=== PATIENT | female | born 1985 | race Caucasian/White ===

== ENCOUNTER 2016-08-28 20:17 | Emergency (ER) | payer MEDICAID, OTHER ==
[~2016-08-28] VITALS: Ht 134.6 cm; Wt 57.0 kg
[~2016-08-28 20:17] MED LIST: CETI10CA PO; IBUP-1542 PO
[2016-08-28 21:48] VITALS: Ht 134.6 cm; Wt 57.0 kg
--- NOTE | 2016-08-28 23:22 | ERD ---
ER Documentation Chief Complaint Date/Time DATE: 08/28/16 TIME: 23:17 Chief Complaint martell/fever/back pain x 3 weeks. HPI 31-year-old female presents to emergency department for complaints of headache, back pain, on and off fever for 3 weeks. Patient discussed the pain and the headache as throbbing pain, 4/10 scale, not better or worse with anything. Patient did not have any head injury. Patient did not take any medication for pain. Patient complaining of lower back pain for 3 weeks, sharp pain, 6/10, worse upon movement. Patient states that she has been having on and off fever but did not check temperature home. Patient states that she felt warm. Patient is approximately 13 weeks . 4 para 3 0. Patient denies hematuria or dysuria. Patient denies any nausea or vomiting. ROS All systems reviewed and are negative except as per history of present illness. Medications Home Meds Active Scripts Cetirizine Hcl* (Zyrtec*) 10 Mg Capsule, 10 MG PO DAILY, #20 TAB.CHEW Prov:ABDULLAHI CHEEK MD 09/18/15 Ibuprofen* (Motrin*) 600 Mg Tab, 600 MG PO Q6, #20 TAB Prov:ABDULLAHI CHEEK MD 09/18/15 Allergies Allergies: Coded Allergies: No Known Drug Allergy (Verified Allergy, 09/25/13) PMhx/Soc History of Surgery: Yes ( section) Anesthesia Reaction: No Hx Neurological Disorder: No Hx Respiratory Disorders: No Hx Cardiac Disorders: No Hx Psychiatric Problems: No Hx Miscellaneous Medical Probl: No Hx Alcohol Use: No Hx Substance Use: No Hx Tobacco Use: No FmHx Family History: No coronary disease, No diabetes, No other Physical Exam Vitals Vital Signs Date Time Temp Pulse Resp B/P Pulse Ox O2 Delivery O2 Flow Rate FiO2 08/28/16 21:48 98.8 81 18 118/64 99 Physical Exam GENERAL: The patient is well developed and appropriate for usual state of health, in no apparent distress. CHEST: Clear to auscultation bilaterally. There are no rales, wheezes or rhonchi. HEART: Regular rate and rhythm. No murmurs, clicks, rubs or gallops. No S3 or S4. ABDOMEN: Soft, nontender and nondistended. Good bowel sounds. No rebound or guarding. No gross peritonitis. No gross organomegaly or masses. No Joyce sign or McBurney point tenderness. BACK: No midline or flank tenderness. EXTREMITIES: Equal pulses bilaterally. There is no peripheral clubbing, cyanosis or edema. No focal swelling or erythema. Full range of motion. Grossly neurovascularly intact. NEURO: Alert and oriented. Cranial nerves 2-12 intact. Motor strength in all 4 extremities with 5/5 strength. Sensation grossly intact. Normal speech and gait. SKIN: There is no apparent rash or petechia. The skin is warm and dry. HEMATOLOGIC AND LYMPHATIC: There is no evidence of excessive bruising or lymphedema. No gross cervical, axillary, or inguinal lymphadenopathy. Result Diagram: 08/28/16 2330 Results 24 hrs Laboratory Tests Test 08/28/16 23:30 08/28/16 23:41 Basophils # 0.010^3/ul Basophils % 0.3% Beta HCG, Quantitative 32588.0mIU/ml Eosinophils # 0.010^3/ul Eosinophils % 0.4% Hematocrit 36.3% Hemoglobin 12.5g/dl Lymphocytes # 3.010^3/ul Lymphocytes % 27.4% Mean Corpuscular Hemoglobin 30.5pg Mean Corpuscular Hemoglobin Concent 34.4g/dl Mean Corpuscular Volume 88.6fl Mean Platelet Volume 10.2fl Monocytes # 0.710^3/ul Monocytes % 6.2% Neutrophils # 7.210^3/ul Neutrophils % 65.7% Nucleated Red Blood Cells # 0.010^3/ul Nucleated Red Blood Cells % 0.0/100WBC Platelet Count 19402^3/UL Red Blood Count 4.1010^6/ul Red Cell Distribution Width 13.1% White Blood Count 10.910^3/ul Urine Bacteria FEW Urine Bilirubin NEGATIVE Urine Clarity CLEAR Urine Color LT. YELLOW Urine Glucose NEGATIVE% Urine Hemoglobin 1+ Urine Ketones 40 Urine Leukocyte Esterase NEGATIVE Urine Microscopic RBC 0-2/HPF Urine Microscopic WBC 0-2/HPF Urine Nitrite NEGATIVE Urine Specific [place] 1.015 Urine Squamous Epithelial Cells FEW Urine Total Protein NEGATIVE Urine Transitional Epithelial Cells Urine Urobilinogen 0.2 E.U./dL Urine pH 6.0 PROCEDURE: Obstetrical ultrasound greater than 14 weeks CLINICAL INDICATION: Back pain TECHNIQUE: Real time sonographic imaging of the gravid uterus is performed transabdominally and multiple static walls scale and Doppler images are submitted for review as are measurements. The images are reviewed on the PACS. COMPARISON: No relevant exams are available FINDINGS: There is a single living intrauterine gestation in variable presentation. The heart beat is estimated at 146 bpm. The measurements are as follows: BPD: 3.36 cm HC: 12.32 cm AC: 10.23 cm FL: 2.13 cm Estimated gestational age is 16 weeks 2 days. The estimated date of delivery is 02/10/2017. The estimated weight is 151 grams. Placenta is fundal and grade 0. There is no evidence of placenta previa or abruption. anatomic survey is performed and shows no abnormality, the three-vessel cord and cord insertion are unremarkable. The maximum vertical pocket of amniotic fluid is normal estimated at 3.3 cm, qualitatively the amount of amniotic fluid appears normal. RPTAT:HJJR IMPRESSION: 1. Single viable intrauterine gestation estimated at 16 weeks 2 days with the estimated date of delivery 02/10/2017. 2. Fundal grade 0 placenta without placenta abruption or previa. Physician Laura Date Time Electronically viewed and signed by Physician Laura on 08/28/2016 23:42 JR/ CC: CHANCE NGUYEN PUBLIC RELATIONS REPRESENTATIVE Procedures/MDM Medical Decision Making: Patient's symptoms of back pain nonspecific at this time, possible musculoskeletal pain from the . Patient's headache is nonspecific, possibly tension headache, possible migraine. No tract infection, no symptoms of pyelonephritis. There is low suspicion for abdominal emergencies at this time. Patients abdominal exam is normal at this time. Patients ultrasound shows a viable . There is low suspicion for appendicitis, cholecystitis, abdominal aortic aneurysms or peritonitis at this time. There is low suspicion for sepsis. Patient appears well and is hemodynamically stable. She has subjective fever, but no leukocytosis, no bandemia, no fever here in the emergency department. Disposition: Home. Condition: Stable Prescription Tylenol Instructions: Patient is advised to take medications as prescribed. Patient is advised to rest, increase fluid intake and do brat diet for next 1-2 days and progress as tolerated. Patient is advised that if symptoms are worse, severe abdominal pain, uncontrolled vomiting, high fever, severe flank pain, worst signs and symptoms, to return to the emergency department immediately. Otherwise, patient can follow up with primary care doctor in 5-7 days. OB doctor within 1-2 days. Departure Diagnosis: Primary Impression: Back pain Back pain location: low back pain Chronicity: acute Back pain laterality: bilateral Sciatica presence: without sciatica Qualified Code: M54.5 - Acute bilateral low back pain without sciatica Additional Impressions: Headache Headache type: unspecified Headache chronicity pattern: acute headache Intractability: not intractable Qualified Code: R51 - Acute nonintractable headache, unspecified headache type Intrauterine Additional Instructions: Patient is advised to take medications as prescribed. Patient is advised to rest , increase fluid intake and do brat diet for next 1-2 days and progress as tolerated. Patient is advised that if symptoms are worse, severe abdominal pain , uncontrolled vomiting, high fever, severe flank pain, worst signs and symptoms , to return to the emergency department immediately. Otherwise, patient can follow up with primary care doctor in 5-7 days. OB doctor within 1-2 days. CHANCE NGUYEN NP Aug 28, 2016 23:21
--- NOTE | 2016-08-28 23:42 | RADRPT ---
PROCEDURE: Obstetrical ultrasound greater than 14 weeks CLINICAL INDICATION: Back pain TECHNIQUE: Real time sonographic imaging of the gravid uterus is performed transabdominally and mu ltiple static walls scale and Doppler images are submitted for review as are measurements. The image s are reviewed on the PACS. COMPARISON: No relevant exams are available FINDINGS: There is a single living intrauterine gestation in variable presentation. The heart beat is e stimated at 146 bpm. The measurements are as follows: BPD:3.36 cm HC:12.32 cm AC:10.23 cm FL:2.13 cm Estimated gestational age is 16 weeks 2 days. The estimated date of delivery is 02/10/2017. The estimated weight is 151 grams. Placenta is fundal and grade 0. There is no evidence of placenta previa or abruption. anatomic survey is performed and shows no abnormality, the three-vessel cord and cord insertio n are unremarkable. The maximum vertical pocket of amniotic fluid is normal estimated at 3.3 cm, qualitatively the amoun t of amniotic fluid appears normal. RPTAT:HJJR IMPRESSION: 1. Single viable intrauterine gestation estimated at 16 weeks 2 days with the estimated date of deli very 02/10/2017. 2. Fundal grade 0 placenta without placenta abruption or previa. Physician Laura Date Time Electronically viewed and signed by Physician Laura on 08/28/2016 23:42 JR/
[2016-08-29 00:10] LABS: ADD UMIC YES; URINE BILIRUBIN (Dip) NEGATIVE (NEGATIVE); URINE BLOOD (Dip) 1+ (NEGATIVE); URINE COLOR LT. YELLOW (YELLOW); URINE GLUCOSE (Dip) NEGATIVE (NEGATIVE); URINE KETONES (Dip) 40 (NEGATIVE); URINE LEUKOCYTE ESTERASE (Dip) NEGATIVE (NEGATIVE); URINE NITRITE (Dip) NEGATIVE (NEGATIVE); URINE TOTAL PROTEIN (Dip) NEGATIVE (NEGATIVE); URINE UROBILINOGEN (Dip) 0.2 E.U./dL (0.1-1.0)
[2016-08-29 00:26] LABS: BASOPHILS % 0.3 % (0.0-2.0); EOSINOPHILS % 0.4 % (0.0-7.0); HEMATOCRIT 36.3 % (37.0-47.0); HEMOGLOBIN 12.5 g/dl (12.0-16.0); LYMPHOCYTES % 27.4 % (15.0-51.0); MEAN CORPUSCULAR HEMOGLOBIN 30.5 pg (29.0-33.0); MEAN CORPUSCULAR HGB CONC 34.4 g/dl (32.0-37.0); MEAN CORPUSCULAR VOLUME 88.6 fl (82.0-101.0); MEAN PLATELET VOLUME 10.2 fl (7.4-10.4); MONOCYTE # 0.7 10^3/ul (0.3-0.9); MONOCYTES % 6.2 % (0.0-11.0); NEUTROPHIL # 7.2 10^3/ul (1.6-7.5); NEUTROPHILS % 65.7 % (39.0-77.0); PLATELET COUNT 188 10^3/UL (140-440); RED CELL DISTRIBUTION WIDTH 13.1 % (11.5-14.5); UNCORRECTED WBC 10.9 10^3/ul (4.8-10.8); WHITE BLOOD COUNT 10.9 10^3/ul (4.8-10.8)
[2016-08-29 00:38] LABS: CONDITION 1
[2016-08-29 01:14] LABS: URINE RBCS 0-2 /HPF (0)
[2016-08-29 01:15] LABS: BACTERIA,URINE FEW; SQUAMOUS EPITHELIAL CELL,UR FEW
[2016-08-29] MEDS ORDERED: ACET500C5 PO (01:54)
[2016-08-29 02:02] VITALS: BP 108/64; PULSE 78; RESP 20; TEMP 98.6
== END 2016-08-29 02:03 | disposition home or self-care (01) ==
LOC: FTE 20:17
DX: O99.89 Other specified diseases and conditions complicating pregnancy, childbirth and the puerperium (principal); M54.5 Low back pain; R51 Headache; Z3A.16 16 weeks gestation of pregnancy
CPT/HCPCS: 36415; 76805; 81001; 81003; 84702; 85025; 86900; 86901; Z7502

== ENCOUNTER 2016-12-10 20:30 | Outpatient (CLI) | payer MEDICAID ==
[~2016-12-10] VITALS: Ht 134.6 cm; Wt 57.7 kg
[~2016-12-10 20:30] MED LIST changes: +ACET500C5 PO
[2016-12-10] MEDS ORDERED: NIFEdipine (XL) 60 MG TAB PO ONE (21:30)
--- NOTE | 2016-12-10 21:36 | HP ---
Date/Time of Note Date/Time of Note DATE: 12/10/16 TIME: 21:31 OB - History Hx of Present Free Text/Dictation SAB1 with IUP at 31 weeks and h/o c/s x 3. she c/o constant pelvic pressure , but not intermittent contractions for the past 5 days. she denies vaginal bleeding or LOF per vagina. she reports good FM. she also c/o back pain over her right SI joint. she reports her back pain is worse with activities. Care: Good Care Ultrasounds: Normal mid trimester US Obstetrical Complications: None Medical Complications: None Past Family/Social History * significant for h/o c/s x 3 OB Admission Exam Vital Signs Vital Signs AF, VSS Back: tender over Right SI joint. Physical Exam HEENT: WNL Heart: Rhythm Normal Lungs: Clear, Equal Abdomen: WNL Extremities: Normal Reflexes: Normal Cervical Dilatation: None Effacement: 0% Station: -3 Membranes: Intact OB Assessment/Plan Other Assessment: SAB1 with IUP at 31 weeks and h/o c/s x 3. she c/o constant pelvic pressure , but not intermittent contractions for the past 5 days. she denies vaginal bleeding or LOF per vagina. she reports good FM. she also c/o back pain over her right SI joint. she reports her back pain is worse with activities.not in labor Other plan: may be discharged home with PTL precautions KAM DEUTSCH MD December 10, 2016 21:36
[2016-12-10 21:49] VITALS: Ht 134.6 cm; Wt 57.7 kg
[2016-12-10 21:50] VITALS: BP 107/63; PULSE 86; RESP 18
[2016-12-10] MEDS ORDERED: PREN-93 PO (21:53)
[2016-12-10 22:33] LABS: ADD UMIC YES; URINE BILIRUBIN (Dip) NEGATIVE (NEGATIVE); URINE BLOOD (Dip) TRACE (NEGATIVE); URINE COLOR LT. YELLOW (YELLOW); URINE GLUCOSE (Dip) NEGATIVE (NEGATIVE); URINE KETONES (Dip) 40 (NEGATIVE); URINE LEUKOCYTE ESTERASE (Dip) NEGATIVE (NEGATIVE); URINE NITRITE (Dip) NEGATIVE (NEGATIVE); URINE TOTAL PROTEIN (Dip) NEGATIVE (NEGATIVE); URINE UROBILINOGEN (Dip) 0.2 E.U./dL (0.1-1.0)
[2016-12-10 22:39] LABS: BACTERIA,URINE FEW
[2016-12-10 22:40] LABS: URINE RBCS 0-2 /HPF (0)
--- NOTE | 2016-12-11 01:03 | TRIAGE ---
OB Triage Datetime Report Generated by CPN: 12/11/2016 01:03 Datetime: 12/10/2016 22:00 Labor Evaluation Frequency: IRREGULAR Monitor Mode: External Duration (sec)2399: 60 Quality: Mild Pattern: Normal: <= 5 Contractions in 10 Minutes Resting Tone [place]: Relaxed Heart Rate FHR Baseline Rate: 145 Monitor Mode: External US FHR Baseline Changes: No Baseline Change Variability: Moderate 6-25 bpm Accelerations: 15X15 Decelerations: None; Variable Category: Category I Datetime: 12/10/2016 21:02 Vaginal Exam Dilatation (cms): 0.0 Effacement (%): 0 Station: -3 Exam By: RUPERTO Vaginal Bleeding: None Cervix, Consistency: Firm Cervix, Position: Posterior Datetime: 12/10/2016 21:00 Labor Evaluation Frequency: 1 Monitor Mode: External Duration (sec)2399: 50 Quality: Mild Pattern: Normal: <= 5 Contractions in 10 Minutes Resting Tone [place]: Relaxed Heart Rate FHR Baseline Rate: 140 Monitor Mode: External US FHR Baseline Changes: No Baseline Change Variability: Moderate 6-25 bpm Accelerations: 15X15 Decelerations: None Category: Category I Datetime: 12/10/2016 20:47 Time of Arrival: 12/10/2016 20:22 Arrived By: Wheelchair Arrived From: Home Chief Complaint: ABDOMINAL PAIN Movement: Present Contractions: Denies/Absent Rupture of Membranes: Denies Vaginal Bleeding: None Vaginal Discharge: Denies Recent Sexual Intercouse: Denies Abdominal Trauma: Not Applicable Time Provider Notified: 12/10/2016 20:47 Provider Notified: DR DEUTSCH (Annotations: Data stored by N on behalf of user) Initial Plan: CALL MD EFM Maternal Assessment Level of Consciousness: Fully Conscious DTR's/Clonus: DTRs 2+; No Clonus Headache: Denies Blurred Vision: No Respiratory Effort: Unlabored; Regular Rhythm; Equal Expansion Breath Sounds, Left: Clear and Equal Breath Sounds, Right: Clear and Equal Nausea/Vomiting: Denies RUQ Epigastric Pain: Denies Lower Extremities Edema: None Degree: None Upper Extremities Edema: None Degree: None Facial Edema: None Temperature Route: Oral Fall Risk Assessment History of Falling: (0) No Secondary Diagnosis: (0) No Ambulatory Aid: (0) Bedrest/Nurse Assist IV Therapy: (0) No Gait: (0) Normal/Bedrest/Immobile Mental Status: (0) Oriented to Own Ability Fall Score: 0 Fall Risk Score Definition: No Risk: No action required Monitor Mode: External Monitor Mode: External US Pain Assessment Pain Scale: 5 Pain Presence: Intermittent Pain Type: Cramping Pain Location: Abdomen; Back
== END 2016-12-10 22:30 | disposition home or self-care (01) ==
LOC: OBT 20:30 → L-D 20:33 → OBT 22:30
PROVIDERS: ATTEND Specialist
DX: O26.893 Other specified pregnancy related conditions, third trimester (principal); R10.2 Pelvic and perineal pain; Z3A.31 31 weeks gestation of pregnancy
CPT/HCPCS: 81001; 81003; 84112; 87086; Z7610; G0463

== ENCOUNTER 2017-01-03 16:39 | Inpatient (IN) | payer MEDICAID ==
[~2017-01-03] VITALS: Ht 134.6 cm; Wt 59.8 kg
[~2017-01-03 16:39] MED LIST changes: -ACET500C5 PO; -CETI10CA PO; -IBUP-1542 PO; +PREN-93 PO
[2017-01-03 16:54] LABS: URINE BLOOD (Dip) POC Trace-lysed (NEGATIVE)
[2017-01-03 17:05] VITALS: BP 104/66; PULSE 89; RESP 89; Ht 134.6 cm; Wt 59.8 kg
[2017-01-03] MEDS ORDERED: LACTATED RINGER'S 1,000 ML IV ONE (17:30)
[2017-01-03 18:19] LABS: ADD UMIC YES; UR BILIRUBIN (Dip) 1+ (NEGATIVE); UR BLOOD (Dip) TRACE (NEGATIVE); UR CLARITY SLIGHTLY CLOUDY (CLEAR); UR COLOR YELLOW (YELLOW); UR GLUCOSE (Dip) NEGATIVE (NEGATIVE); UR KETONES (Dip) TRACE (NEGATIVE); UR LEUKOCYTE ESTERASE (Dip) NEGATIVE (NEGATIVE); UR NITRITE (Dip) NEGATIVE (NEGATIVE); UR TOTAL PROTEIN (Dip) 1+ (NEGATIVE); UR UROBILINOGEN (Dip) 1.0 E.U./dL (0.1-1.0)
[2017-01-03] MEDS ORDERED: TERBUTALINE 1 ML ONE (18:19)
[2017-01-03 18:27] LABS: ICTOTEST NEGATIVE (NEGATIVE)
[2017-01-03 18:29] LABS: UR BACTERIA FEW; UR SQUAMOUS EPITHELIAL CELL MODERATE; UR URIC ACID CRYSTAL FEW; URINE RBCS 0-2 /HPF (0)
[2017-01-03] MEDS ORDERED: TERBUTALINE 1 MG/ML INJ SC ONE (18:30)
--- NOTE | 2017-01-03 18:41 | RADRPT ---
PROCEDURE: Obstetrical ultrasound CLINICAL INDICATION: labor TECHNIQUE: Multiple sonographic images of the pelvis were obtained. The images were reviewed on a PACS workstation. COMPARISON: Obstetrical ultrasound from 08/28/2016 FINDINGS: The cervix is not well visualized. There is a single viable intrauterine gestation. Cardiac activity is present with 139 beats per minute. There is a vertex presentation. The placenta is anterior. There is no evidence for an abruption or placenta previa. There is a subjectively normal amount of amniotic fluid. Measurements were made in order to determine age. The results are as follows (cm): BPD =8.23 HC =30.50 AC =30.25 FL =6.42 Estimated gestational age by ultrasound of approximately 33 weeks, 4 days. The estimated date of delivery by ultrasound is 02/17/2017. Estimated gestational age by LMP of approximately 33 weeks, 3 days. The estimated date of delivery by LMP is 02/18/2017. EFW = 2275 grams (52nd percentile) IMPRESSION: Single viable intrauterine gestation of approximately 33 weeks, 4 days . The estimated date of delivery is 02/17/2017 . Dating by ultrasound is within 1 day of dating by LMP. Cephalic presentation. Estimated weight is in the 52nd percentile. RPTAT: EE Physician Tanvir Date Time Electronically viewed and signed by Physician Tanvir on 01/03/2017 18:40 /
--- NOTE | 2017-01-03 19:50 | RADRPT ---
PROCEDURE: Limited obstetric ultrasound CLINICAL INDICATION: Pain , labor TECHNIQUE: Multiple transverse and longitudinal grayscale images of the pelvis were obtained kay sabdominally and transvaginally.. COMPARISON: same day FINDINGS: The cervix is closed with a length of 4.5 cm. RPTAT: AA IMPRESSION: Cervix length measures 4.5 cm. .Jd Leblanc MD, MD Date Time Electronically viewed and signed by .Jd Leblanc MD, on 01/03/2017 19:50 .S/
[2017-01-03] MEDS: NIFEdipine 10 MG CAP PO SCH ×3 (20:31→22:32)
[2017-01-04] MEDS ORDERED: BETAMET NA PHOS/AC(6 MG/ML) 5ML INJ IM SCH
[2017-01-04] MEDS ORDERED: AL HYDROX/MG HYDROX/SIMETH 30 ML CUP PO PRN
--- NOTE | 2017-01-04 00:17 | PN ---
Triage Information Date/Time Jan 03, 2017 at 23:05 Weeks of Gestation 34 weeks and 4 days : 5 Para: 3 Diabetes: none Hypertention: none Additional information 31 years old with IUP at 34 weeks and 4 days with history of section x 3 presented with complaint of regular painful uterine contractions. Denies any vaginal bleeding., decreased movement or LOF. Reports history of PTD at 7 mo in the past. Denies any urinary symptoms. Denies any complication during her course. OLESYA by 16 weeks consistent with 23 weeks: February 10, 2017 Started care at 20 weeks. Objective Vital Signs Date Time Temp Pulse Resp B/P Pulse Ox O2 Delivery O2 Flow Rate FiO2 01/03/17 17:05 98.6 89 89 104/66 99 Room Air Exam GA: A&O, Appears to be in moderate distress Abdomen: soft, non tender, Gravid. Fundal height consistent with GA NST; CAt 1 Regular contractions every 2-6 minutes noted on the monitor Vaginal exam: - UA: Negative Results/Medications Results 24 hrs Laboratory Tests Test 01/03/17 16:57 01/03/17 17:00 Bedside Urine pH (LAB) 6.0 Bedside Urine Protein (LAB) 2+ H Bedside Urine Glucose (UA) Negative Bedside Urine Ketones (LAB) Trace H Bedside Urine Blood Trace-lysed H Bedside Urine Nitrite (LAB) Negative Bedside Urine Leukocyte Esterase (L Negative Urine Color YELLOW Urine Clarity SLIGHTLY CLOUDY Urine pH 6.0 Urine Specific [place] >=1.030 H Urine Ketones TRACE H Urine Nitrite NEGATIVE Urine Bilirubin 1+ H Urine Ictotest NEGATIVE Urine Urobilinogen 1.0 E.U./dL Urine Leukocyte Esterase NEGATIVE Urine Microscopic RBC 0-2 Urine Microscopic WBC 0-2 Urine Squamous Epithelial Cells MODERATE Urine Uric Acid Crystals FEW Urine Bacteria FEW Urine Hemoglobin TRACE Urine Glucose NEGATIVE Urine Total Protein 1+ H Imaging Results PROCEDURE: Limited obstetric ultrasound CLINICAL INDICATION: Pain , labor TECHNIQUE: Multiple transverse and longitudinal grayscale images of the pelvis were obtained transabdominally and transvaginally.. COMPARISON: same day FINDINGS: The cervix is closed with a length of 4.5 cm. RPTAT: AA IMPRESSION: Cervix length measures 4.5 cm. ROCEDURE: Obstetrical ultrasound CLINICAL INDICATION: labor TECHNIQUE: Multiple sonographic images of the pelvis were obtained. The images were reviewed on a PACS workstation. COMPARISON: Obstetrical ultrasound from 08/28/2016 FINDINGS: The cervix is not well visualized. There is a single viable intrauterine gestation. Cardiac activity is present with 139 beats per minute. There is a vertex presentation. The placenta is anterior. There is no evidence for an abruption or placenta previa. There is a subjectively normal amount of amniotic fluid. Measurements were made in order to determine age. The results are as follows (cm): BPD = 8.23 HC = 30.50 AC = 30.25 FL = 6.42 Estimated gestational age by ultrasound of approximately 33 weeks, 4 days. The estimated date of delivery by ultrasound is 02/17/2017. Estimated gestational age by LMP of approximately 33 weeks, 3 days. The estimated date of delivery by LMP is 02/18/2017. EFW = 2275 grams (52nd percentile) IMPRESSION: Single viable intrauterine gestation of approximately 33 weeks, 4 days . The estimated date of delivery is 02/17/2017 . Dating by ultrasound is within 1 day of dating by LMP. Cephalic presentation. Estimated weight is in the 52nd percentile. RPTAT: EE Assessment/Plan IUP at 34 weeks and 4 history of 3 Uterine contractions Patient symptomatic Prior history of delivery Patient reports a history of cardiac problem in the past. Not a candidate for terbutaline Received IV hydration. Continue to have symptomatic contractions Plan: Admit the patient to antepartum Started on nifedipine for tocolysis Consider steroids for lung maturity due to increased risk of delivery in the context of regular contractions that might require Risk and benefit of steroids discussed Loading dose of nifedipine was given. Patient tolerated well. Plan to keep on nifedipine 10 mg p.o. every 4 hours Start steroid Expectant management FRANCESCA CANO MD Jan 04, 2017 00:17
[2017-01-04 00:41] LABS: ADD SCAN DIFF NO
[2017-01-04 00:43] LABS: BASOPHILS % 0.2 % (0.0-2.0); EOSINOPHILS % 0.2 % (0.0-7.0); HEMATOCRIT 26.8 % (37.0-47.0); LYMPHOCYTES # 2.9 10^3/ul (0.8-2.9); LYMPHOCYTES % 29.9 % (15.0-51.0); MEAN CORPUSCULAR HEMOGLOBIN 28.3 pg (29.0-33.0); MEAN CORPUSCULAR HGB CONC 33.6 g/dl (32.0-37.0); MEAN CORPUSCULAR VOLUME 84.3 fl (82.0-101.0); MEAN PLATELET VOLUME 11.9 fl (7.4-10.4); MONOCYTE # 0.7 10^3/ul (0.3-0.9); MONOCYTES % 7.2 % (0.0-11.0); NEUTROPHILS % 62.1 % (39.0-77.0); PLATELET COUNT 180 10^3/UL (140-415); RED BLOOD COUNT 3.18 10^6/ul (4.20-5.40); RED CELL DISTRIBUTION WIDTH 13.5 % (11.5-14.5); WHITE BLOOD COUNT 9.6 10^3/ul (4.8-10.8)
[2017-01-04 01:01] LABS: INR 0.94; PROTIME 12.6 Sec (12.2-14.2)
[2017-01-04 01:02] LABS: PARTIAL THROMBOPLASTIN TIME 30.6 Sec (25.0-35.0)
[2017-01-04] MEDS: LACTATED RINGER'S 1,000 ML IV SCH ×5 (01:15→23:59)
[2017-01-04] MEDS: NIFEdipine 10 MG CAP PO SCH ×2 (02:50→06:30)
--- NOTE | 2017-01-04 06:00 | HP ---
Date/Time of Note Date/Time of Note DATE: 01/04/17 TIME: 06:00 OB - History Hx of Present Free Text/Dictation Additional information 31 years old with IUP at 34 weeks and 4 days with history of section x 3 presented with complaint of regular painful uterine contractions. Denies any vaginal bleeding., decreased movement or LOF. Reports history of PTD at 7 mo in the past. Denies any urinary symptoms. Denies any complication during her course. OLESYA by 16 weeks consistent with 23 weeks: February 10, 2017 Started care at 20 weeks. Objective Vital Signs Date Time Temp Pulse Resp B/P Pulse Ox O2 Delivery O2 Flow Rate FiO2 01/03/17 17:05 98.6 89 89 104/66 99 Room Air Exam GA: A&O, Appears to be in moderate distress Abdomen: soft, non tender, Gravid. Fundal height consistent with [place] NST; CAt 1 Regular contractions every 2-6 minutes noted on the monitor Vaginal exam: - UA: Negative Results/Medications Results 24 hrs Laboratory Tests Test 01/03/17 16:57 01/03/17 17:00 Bedside Urine pH (LAB) 6.0 Bedside Urine Protein (LAB) 2+ H Bedside Urine Glucose (UA) Negative Bedside Urine Ketones (LAB) Trace H Bedside Urine Blood Trace-lysed H Bedside Urine Nitrite (LAB) Negative Bedside Urine Leukocyte Esterase (L Negative Urine Color YELLOW Urine Clarity SLIGHTLY CLOUDY Urine pH 6.0 Urine Specific [place] >=1.030 H Urine Ketones TRACE H Urine Nitrite NEGATIVE Urine Bilirubin 1+ H Urine Ictotest NEGATIVE Urine Urobilinogen 1.0 E.U./dL Urine Leukocyte Esterase NEGATIVE Urine Microscopic RBC 0-2 Urine Microscopic WBC 0-2 Urine Squamous Epithelial Cells MODERATE Urine Uric Acid Crystals FEW Urine Bacteria FEW Urine Hemoglobin TRACE Urine Glucose NEGATIVE Urine Total Protein 1+ H Imaging Results PROCEDURE: Limited obstetric ultrasound CLINICAL INDICATION: Pain , labor TECHNIQUE: Multiple transverse and longitudinal grayscale images of the pelvis were obtained transabdominally and transvaginally.. COMPARISON: same day FINDINGS: The cervix is closed with a length of 4.5 cm. RPTAT: AA IMPRESSION: Cervix length measures 4.5 cm. ROCEDURE: Obstetrical ultrasound CLINICAL INDICATION: labor TECHNIQUE: Multiple sonographic images of the pelvis were obtained. The images were reviewed on a PACS workstation. COMPARISON: Obstetrical ultrasound from 08/28/2016 FINDINGS: The cervix is not well visualized. There is a single viable intrauterine gestation. Cardiac activity is present with 139 beats per minute. There is a vertex presentation. The placenta is anterior. There is no evidence for an abruption or placenta previa. There is a subjectively normal amount of amniotic fluid. Measurements were made in order to determine age. The results are as follows (cm): BPD = 8.23 HC = 30.50 AC = 30.25 FL = 6.42 Estimated gestational age by ultrasound of approximately 33 weeks, 4 days. The estimated date of delivery by ultrasound is 02/17/2017. Estimated gestational age by LMP of approximately 33 weeks, 3 days. The estimated date of delivery by LMP is 02/18/2017. EFW = 2275 grams (52nd percentile) IMPRESSION: Single viable intrauterine gestation of approximately 33 weeks, 4 days . The estimated date of delivery is 02/17/2017 . Dating by ultrasound is within 1 day of dating by LMP. Cephalic presentation. Estimated weight is in the 52nd percentile. RPTAT: EE Assessment/Plan IUP at 34 weeks and 4 history of 3 Uterine contractions Patient symptomatic Prior history of delivery Patient reports a history of cardiac problem in the past. Not a candidate for terbutaline Received IV hydration. Continue to have symptomatic contractions Plan: Admit the patient to antepartum Started on nifedipine for tocolysis Consider steroids for lung maturity due to increased risk of delivery in the context of regular contractions that might require Risk and benefit of steroids discussed Loading dose of nifedipine was given. Patient tolerated well. Plan to keep on nifedipine 10 mg p.o. every 4 hours Start steroid Expectant management Copies To: Copies To: FRANCESCA CANO MD Jan 04, 2017 00:17 Past Family/Social History * Past Medical, Surgical, Family and Obstetric Histories reviewed from chart. OB Admission Exam Vital Signs Vital Signs Vital Signs Date Time Temp Pulse Resp B/P Pulse Ox O2 Delivery O2 Flow Rate FiO2 01/03/17 17:05 98.6 89 89 104/66 99 Room Air Last 72 hours Lab Results CBC & BMP 01/04/17 00:36 FRANCESCA CANO MD Jan 04, 2017 06:00
--- NOTE | 2017-01-04 06:17 | TRIAGE ---
OB Triage Datetime Report Generated by CPN: 01/04/2017 06:16 Datetime: 01/04/2017 05:49 Pain Assessment Pain Scale: 7 Pain Presence: Intermittent Pain Type: Cramping Pain Location: Abdomen Pain Goal: 4 Pain Relief Measures: Comfort Measures Datetime: 01/04/2017 05:48 Comments: + movement. pt stated baby moves a lot Datetime: 01/04/2017 05:00 Stage of : Antepartum Labor Evaluation Frequency: 3-8 Monitor Mode: External Duration (sec)2399: 30-100 Quality: Moderate Pattern: Normal: <= 5 Contractions in 10 Minutes Resting Tone [place]: Relaxed Heart Rate FHR Baseline Rate: 135 Monitor Mode: External US Variability: Moderate 6-25 bpm Accelerations: 15X15 Decelerations: Late; Variable Category: Category II Comments: SEE INTERVENTIONS Datetime: 01/04/2017 04:37 Monitor Mode: Palpation Resting Tone [place]: Relaxed Datetime: 01/04/2017 04:32 Decelerations: Late Category: Category II Datetime: 01/04/2017 04:30 Monitor Mode: Palpation Quality: Moderate Interventions: Side to Side; IV Bolus Decelerations: Variable Category: Category II Pain Assessment Comments: pt stated tylenol helped a little w/ pain relief Datetime: 01/04/2017 04:00 Stage of : Antepartum Labor Evaluation Frequency: 3-10 Monitor Mode: External Duration (sec)2399: 50-160 Quality: Mild Pattern: Normal: <= 5 Contractions in 10 Minutes Resting Tone [place]: Relaxed Heart Rate FHR Baseline Rate: 140 Monitor Mode: External US Variability: Moderate 6-25 bpm Accelerations: 15X15 Decelerations: None Category: Category I Datetime: 01/04/2017 03:50 Pain Assessment Pain Scale: 7 Pain Presence: Intermittent Pain Type: Cramping Pain Location: Abdomen Pain Goal: 4 Pain Relief Measures: Comfort Measures Datetime: 01/04/2017 03:00 Stage of : Antepartum Labor Evaluation Frequency: 6-8 Monitor Mode: External Duration (sec)2399: 100-120 Quality: Mild Pattern: Normal: <= 5 Contractions in 10 Minutes Resting Tone [place]: Relaxed Contraction Comments: STRIP REVIEW FROM [id number] Heart Rate FHR Baseline Rate: 140 Monitor Mode: External US Variability: Moderate 6-25 bpm Accelerations: 15X15 Decelerations: None Category: Category I Comments: STRIP REVIEW FROM [id number] Datetime: 01/04/2017 02:48 Pain Assessment Pain Scale: 7 Pain Presence: Intermittent Pain Type: Cramping Pain Location: Abdomen Pain Goal: 4 Pain Relief Measures: Comfort Measures Datetime: 01/04/2017 02:00 Stage of : Antepartum Labor Evaluation Frequency: 6-15 Monitor Mode: External Duration (sec)2399: 90-210 Quality: Mild Pattern: Normal: <= 5 Contractions in 10 Minutes Resting Tone [place]: Relaxed Heart Rate FHR Baseline Rate: 140 Monitor Mode: External US Variability: Moderate 6-25 bpm Accelerations: 15X15 Decelerations: None Category: Category I Datetime: 01/04/2017 01:00 Stage of : Antepartum Labor Evaluation Frequency: X2 Monitor Mode: External Duration (sec)2399: 50-100 Quality: Mild Pattern: Normal: <= 5 Contractions in 10 Minutes Resting Tone [place]: Relaxed Interventions: Side to Side Heart Rate FHR Baseline Rate: 145 Monitor Mode: External US Variability: Moderate 6-25 bpm Accelerations: 15X15 Decelerations: Late Category: Category II Datetime: 01/04/2017 00:49 Assessment Type: Admission Assessment Maternal Assessment Level of Consciousness: Fully Conscious DTR's/Clonus: DTRs 2+; No Clonus Headache: Denies Blurred Vision: No Respiratory Effort: Unlabored; Regular Rhythm; Equal Expansion Breath Sounds, Left: Clear and Equal Breath Sounds, Right: Clear and Equal Nausea/Vomiting: Denies RUQ Epigastric Pain: Denies Lower Extremities Edema: None Degree: None Upper Extremities Edema: None Degree: None Facial Edema: None Temperature Route: Oral Fall Risk Assessment History of Falling: (0) No Secondary Diagnosis: (0) No Ambulatory Aid: (0) Bedrest/Nurse Assist IV Therapy: (20) Yes Gait: (0) Normal/Bedrest/Immobile Mental Status: (0) Oriented to Own Ability Fall Score: 20 Fall Risk Score Definition: No Risk: No action required Pain Assessment Pain Scale: 7 Pain Presence: Intermittent Pain Type: Cramping Pain Location: Abdomen Pain Goal: 4 Pain Relief Measures: Comfort Measures Datetime: 01/04/2017 00:38 Stage of : Antepartum Time of Arrival: 01/04/2017 00:38 EGA: 34.5 Arrived By: Wheelchair Arrived From: TRIAGE Datetime: 01/03/2017 19:00 Stage of : OB Triage Maternal Assessment Level of Consciousness: Fully Conscious DTR's/Clonus: DTRs 1+ Headache: Denies Breath Sounds, Left: Clear and Equal Breath Sounds, Right: Clear and Equal Nausea/Vomiting: Denies RUQ Epigastric Pain: Denies Labor Evaluation Frequency: 2-5 Monitor Mode: External Duration (sec)2399: 50-70 Quality: Mild Pattern: Normal: <= 5 Contractions in 10 Minutes Resting Tone [place]: Relaxed Heart Rate FHR Baseline Rate: 150 Monitor Mode: External US Variability: Moderate 6-25 bpm Accelerations: 15X15 Decelerations: None Category: Category I Pain Assessment Pain Scale: 7 Pain Presence: Intermittent Pain Type: Cramping; Contraction Pain Location: Back Pain Goal: 3 Membrane Status: Intact Datetime: 01/03/2017 18:00 Stage of : OB Triage Maternal Assessment Level of Consciousness: Fully Conscious DTR's/Clonus: DTRs 1+ Headache: Denies Breath Sounds, Left: Clear and Equal Breath Sounds, Right: Clear and Equal Nausea/Vomiting: Denies RUQ Epigastric Pain: Denies Labor Evaluation Frequency: 2-5 Monitor Mode: External Duration (sec)2399: 50-70 Quality: Mild Pattern: Normal: <= 5 Contractions in 10 Minutes Resting Tone [place]: Relaxed Heart Rate FHR Baseline Rate: 150 Monitor Mode: External US Variability: Moderate 6-25 bpm Accelerations: 15X15 Decelerations: None Category: Category I Pain Assessment Pain Scale: 7 Pain Presence: Intermittent Pain Type: Cramping; Contraction Pain Location: Back Pain Goal: 3 Membrane Status: Intact Datetime: 01/03/2017 17:16 Vaginal Exam Dilatation (cms): 1.0 Effacement (%): 50 Station: -2 Exam By: NAGI BUTTS Vaginal Bleeding: None Cervix, Consistency: Soft Cervix, Position: Midposition Presentation 'A': Cephalic Datetime: 01/03/2017 17:10 Maternal Assessment Level of Consciousness: Fully Conscious DTR's/Clonus: DTRs 1+ Headache: Denies Blurred Vision: No Respiratory Effort: Unlabored Breath Sounds, Left: Clear and Equal Breath Sounds, Right: Clear and Equal Nausea/Vomiting: Denies RUQ Epigastric Pain: Denies Facial Edema: None Labor Evaluation Frequency: 2-5 Monitor Mode: External Duration (sec)2399: 50-70 Quality: Mild Pattern: Normal: <= 5 Contractions in 10 Minutes Resting Tone [place]: Relaxed Heart Rate FHR Baseline Rate: 150 Monitor Mode: External US Variability: Moderate 6-25 bpm Accelerations: 15X15 Decelerations: None Category: Category I Pain Assessment Pain Scale: 7 Pain Presence: Intermittent Pain Type: Cramping; Contraction Pain Location: Back Pain Goal: 3 Membrane Status: Intact Datetime: 01/03/2017 17:03 EGA: 34.4 Datetime: 01/03/2017 16:45 Assessment Type: Triage Maternal Assessment Level of Consciousness: Fully Conscious DTR's/Clonus: DTRs 2+; No Clonus Headache: Denies Blurred Vision: No Respiratory Effort: Unlabored; Regular Rhythm; Equal Expansion Breath Sounds, Left: Clear and Equal Breath Sounds, Right: Clear and Equal Nausea/Vomiting: Denies RUQ Epigastric Pain: Denies Lower Extremities Edema: None Degree: None Upper Extremities Edema: None Degree: None Facial Edema: None Fall Risk Assessment History of Falling: (0) No Secondary Diagnosis: (0) No Ambulatory Aid: (0) Bedrest/Nurse Assist IV Therapy: (0) No Gait: (0) Normal/Bedrest/Immobile Mental Status: (0) Oriented to Own Ability Fall Score: 0 Fall Risk Score Definition: No Risk: No action required Datetime: 01/03/2017 16:37 Time of Arrival: 01/03/2017 16:37 Arrived By: Ambulatory Arrived From: Home Chief Complaint: PT CAME IN C/O UC'S SINCE SUNDAY Movement: Present Contractions: Denies/Absent Time Contractions Began: 12/30/2016 10:00 Contractions: IRREGULAR Rupture of Membranes: Denies Vaginal Discharge: Denies Recent Sexual Intercouse: Denies Abdominal Trauma: Not Applicable Additional Patient Complaints: NONE Time Provider Notified: 01/03/2017 17:02 Provider Notified: RACHAEL Initial Plan: MONITOR , CX LENGHT, EFW, UA, VE Datetime: 12/10/2016 20:47 Fall Score: 0 Fall Risk Score Definition: No Risk: No action required
[2017-01-04] MEDS ORDERED: OXYTOCIN 30 UNITS/LR 500 ML IV PRN ×2 (09:00→16:30)
[2017-01-04] MEDS ORDERED: CEFAZOLIN 2 GM/50 ML (PMX) 50 ML IVPB ONE (09:00)
[2017-01-04] MEDS ORDERED: FERROUS SULFATE (EC) 325 MG TAB PO SCH (09:00)
[2017-01-04] MEDS ORDERED: METHYLERGONOVINE 0.2 MG INJ IM PRN ×2 (09:00→16:30)
[2017-01-04] MEDS ORDERED: MISOPROSTOL 200 MCG TAB PR PRN ×2 (09:00→16:30)
[2017-01-04] MEDS ORDERED: CARBOPROST 250 MCG INJ IM PRN ×2 (09:00→16:30)
[2017-01-04] MEDS ORDERED: MULTIVIT/MIN/FOLATE/IRON/PREN TAB PO SCH (09:00)
[2017-01-04] MEDS ORDERED: NIFEdipine 10 MG CAP PO SCH (09:00)
--- NOTE | 2017-01-04 09:09 | PN ---
Date/Time of Note Date/Time of Note DATE: 01/04/17 TIME: 09:07 OB Subjective Subjective Subjective 31 years old with IUP at 34 weeks and 4 days with history of section x 3 presented with complaint of regular painful uterine contractions. Denies any vaginal bleeding Reports history of PTD at 7 mo in the past. OB Objective Objective Objective Patient reports pain level of 7 out of 10 and still karl every 5 minutes HEENT: WNL Heart: Rhythm Normal Lungs: Clear, Equal Abdomen: WNL Extremities: Normal Reflexes: Normal Cervical Dilatation: 1cm Effacement: 50% Station: -3 Membranes: Intact Heart Rate: 140's Accelerations: Accelerations Present Decelerations: No Decelerations Varibility: Moderate Contractions on Admission: 6-10 Minutes Apart Intensity: Moderate OB Assessment/Plan Other Assessment: 31 years old with IUP at 34 weeks and 4 days in labor with history of section x 3 Patient status post 1 dose of betamethasone Second dose is due at 1 PM Other plan: Continue with nifedipine p.o. every 6 hours Patient was counseled that if she continues to contract every 5 minutes we will plan for repeat at 4 PM today Patient understands her plan of care and agrees to proceed YUMIKO LAWRENCE MD Jan 04, 2017 09:09
[2017-01-04] MEDS ORDERED: BUTORPHANOL 2 MG INJ IV PRN (09:30)
[2017-01-04] MEDS ORDERED: OXYTOCIN 10 UNIT INJ ONE ×2 (11:07→11:47)
[2017-01-04] MEDS ORDERED: OXYTOCIN 30 UNITS/LR 500 ML IV ONE (11:07)
[2017-01-04] MEDS ORDERED: EPHEDrine SULFATE 50 MG/5 ML SYG ONE (11:07)
[2017-01-04] MEDS ORDERED: METOCLOPRAMIDE 10 MG INJ ONE (11:07)
[2017-01-04] MEDS ORDERED: morphine SULFATE/PF (10 MG/10 ML) INJ ONE (11:07)
[2017-01-04] MEDS ORDERED: ONDANSETRON 4 MG INJ ONE (11:07)
[2017-01-04] MEDS ORDERED: MIDAZOLAM 1 MG/ML 2 ML INJ ONE ×2 (11:57→12:07)
[2017-01-04] MEDS ORDERED: SUCCINYLCHOLINE CHLORIDE 100 MG/5 ML SYG IV ONE (12:15)
[2017-01-04] MEDS ORDERED: PROPOFOL 20 ML ONE (12:15)
[2017-01-04] MEDS ORDERED: NALOXONE (0.4 MG/ML) INJ IV PRN (12:30)
[2017-01-04] MEDS ORDERED: DIPHENHYDRAMINE 50 MG INJ IV PRN (12:30)
[2017-01-04] MEDS ORDERED: HYDROmorphONE 1 MG/ML SYG IV PRN ×2 (12:30)
[2017-01-04] MEDS ORDERED: ONDANSETRON 4 MG INJ IV PRN ×2 (12:30→16:30)
[2017-01-04] MEDS ORDERED: morphine 2 MG INJ IV PRN ×2 (12:30)
[2017-01-04] MEDS ORDERED: morphine SULFATE/PF (10 MG/10 ML) INJ SPINAL ONE (12:30)
[2017-01-04] MEDS ORDERED: EPHEDrine SULFATE 50 MG/5 ML SYG IV PRN (12:30)
[2017-01-04] MEDS: OXYTOCIN 30 UNITS/LR 500 ML IV SCH ×4 (13:09→22:29)
[2017-01-04] MEDS: KETOROLAC 30 MG INJ IV PRN (13:22)
[2017-01-04 15:40] VITALS: BP 94/52; PULSE 76; RESP 18
[2017-01-04] MEDS ORDERED: MAGNESIUM HYDROXIDE 30ML CUP PO PRN (16:30)
[2017-01-04] MEDS ORDERED: BISACODYL 10 MG SUPP PR PRN (16:30)
[2017-01-04] MEDS ORDERED: ACETAMINOPHEN 325 MG TAB PO PRN ×2 (16:30)
[2017-01-04] MEDS ORDERED: CEFAZOLIN 1 GM/50 ML (PMX) 50 ML IV SCH (16:30)
[2017-01-04] MEDS ORDERED: LANOLIN 7 GM TUBE TOP PRN (16:30)
[2017-01-04] MEDS ORDERED: OXYCODONE/ACETAMINOPHEN (5/325) TAB PO PRN ×2 (16:30)
[2017-01-04] MEDS ORDERED: SENNA/DOCUSATE NA (8.6MG/50MG) TAB PO PRN (16:30)
--- NOTE | 2017-01-04 16:32 | OPR ---
Date/Time of Note Date/Time of Note DATE: 01/04/17 TIME: 16:29 Operative Report Preoperative Diagnosis 31 years old with IUP at 34 weeks and 4 days in labor with history of section x 3 Patient status post 1 dose of betamethasone for Repeat and bilateral tubal ligation Postoperative Diagnosis 31 years old with IUP at 34 weeks and 4 days in labor with history of section x 3 Patient status post 1 dose of betamethasone for Repeat and bilateral tubal ligation Operation/Procedure Performed Repeat and bilateral tubal ligation and lysis of adhesions Surgeon: YUMIKO LAWRENCE MD assistant wrestling coach: RANDEE MEDEL MD Anesthesia: general, spinal Estimated Blood Loss: other (600) Specimens Placenta Complications: None YUMIKO LAWRENCE MD Jan 04, 2017 16:32
--- NOTE | 2017-01-04 16:57 | OPR ---
Date/Time of Note Date/Time of Note DATE: 01/04/17 TIME: 16:36 Operative Report Procedure Date: Jan 04, 2017 Preoperative Diagnosis 31 years old with IUP at 34 weeks and 4 days in labor with history of section x 3 Patient status post 1 dose of betamethasone for Repeat and bilateral tubal ligation Postoperative Diagnosis 31 years old with IUP at 34 weeks and 4 days in labor with history of section x 3 Patient status post 1 dose of betamethasone for Repeat and bilateral tubal ligation Operation Performed Repeat and bilateral tubal ligation and lysis of adhesions Surgeon: YUMIKO LAWRENCE MD public relations assistant: RANDEE MEDEL MD Anesthesia: general, spinal Anesthesiologist: NELY MENSAH MD Estimated Blood Loss: other (600) Specimens Placenta Complications: None Pt Condition Post Procedure: stable Disposition: PACU Operative\Procedure Findings Multiple adhesions of the omentum to peritoneum Adhesions of bladder to the lower uterine segment Procedure Description Patient was taken to the operating room after adequate amount of anesthesia was given patient was prepped and draped in normal sterile fashion The old scar was removed sharply with the scalpel and the Pfannenstiel skin incision was carried through the underlying layer of fascia using Bovie Fascia was incised in the midline and extended bilaterally using Bovie Both anterior and posterior aspects of the fascia were grasped with Danielle clamps elevated and tented up and dissected off from underlying layer of rectus muscles using Bovie Using sharp dissections with Metzenbaum scissors the peritoneum was identified and entered sharply Multiple lysis of adhesions were performed to separate omental adhesions from the peritoneum The peritoneal incision was extended bilaterally sharply with Metzenbaum scissors An Buddy retractor was placed in the intraperitoneal cavity A bladder flap was created sharply using Metzenbaum scissors Bladder blade was placed for protection of bladder Low transverse incision was made in the lower uterine segment and incision was extended bilaterally manually Fetus was delivered from vertex presentation atraumatically Baby was handed off to the waiting pediatricians team Placenta was delivered manually intact with three-vessel cord Uterus was cleared of all clots and debris Uterine incision was closed with 1 Vicryl suture in running locked fashion. A second imbricating layer of same suture was placed in a running fashion Gutters were cleared off of all clots and debris Attention was turned to the fallopian tube and the midsegment of the fallopian tube was grasped with [place] clamps 2 free ties of 0 plain were placed on the mid segment of the fallopian tube for hemostasis and 3 cm segment of the fallopian tube was dissected off sharply with Metzenbaum scissors The pedicle was evaluated and cauterized with the Bovie and excellent hemostasis was confirmed The exact same procedure was performed on the opposite side fallopian tube and excellent hemostasis was confirmed Multiple irrigations were performed. Excellent hemostasis was noted on both the lower uterine incision line and bilateral fallopian tube pedicles Surgicel material was placed for further hemostasis on lower uterine segment incision line Peritoneal closure was proceeded with 2-0 Vicryl suture in running fashion Muscles were reapproximated using 2-0 Vicryl in an interrupted fashion Fascial closure was initiated with 0 Vicryl suture in running fashion in 2 separate segments Subcutaneous layer was irrigated and excellent hemostasis was noted. Subcutaneous layer was closed with 2.0 plain suture in an interrupted fashion Skin was closed with end-sorb dc and Dermabond All sponge lap needle counts were correct Patient tolerated procedure well and taken back to recovery room in stable condition Please note patient initially received spinal anesthesia and at some point in the middle of the surgery patient required general anesthesia due to inadequate spinal anesthesia YUMIKO LAWRENCE MD Jan 04, 2017 16:51
[2017-01-04 17:00] VITALS: BP 91/54; PULSE 72; RESP 20
[2017-01-04 19:45] VITALS: BP 95/59; PULSE 101; RESP 19
[2017-01-04] MEDS: CEFAZOLIN 1 GM/50 ML (PMX) 50 ML IVPB SCH (20:52)
[2017-01-05] VITALS: BP 89/55; PULSE 95; RESP 19
[2017-01-05] MEDS: LACTATED RINGER'S 1,000 ML IV SCH ×6 (03:01→19:42)
[2017-01-05 04:00] VITALS: BP 91/56; PULSE 94; RESP 18
[2017-01-05] MEDS: CEFAZOLIN 1 GM/50 ML (PMX) 50 ML IVPB SCH ×2 (04:35→12:26)
[2017-01-05 07:07] LABS: ADD SCAN DIFF NO
[2017-01-05 07:18] LABS: BASOPHILS % 0.1 % (0.0-2.0); HEMATOCRIT 27.5 % (37.0-47.0); HEMOGLOBIN 8.9 g/dl (12.0-16.0); LYMPHOCYTES % 16.1 % (15.0-51.0); MEAN CORPUSCULAR HGB CONC 32.4 g/dl (32.0-37.0); MEAN CORPUSCULAR VOLUME 86.5 fl (82.0-101.0); MEAN PLATELET VOLUME 12.6 fl (7.4-10.4); MONOCYTE # 0.8 10^3/ul (0.3-0.9); MONOCYTES % 6.4 % (0.0-11.0); NEUTROPHIL # 9.5 10^3/ul (1.6-7.5); NEUTROPHILS % 76.9 % (39.0-77.0); PLATELET COUNT 181 10^3/UL (140-415); RED BLOOD COUNT 3.18 10^6/ul (4.20-5.40); RED CELL DISTRIBUTION WIDTH 13.8 % (11.5-14.5); WHITE BLOOD COUNT 12.3 10^3/ul (4.8-10.8)
[2017-01-05 08:05] LABS: ALBUMIN 2.8 g/dl (3.3-4.9); ALBUMIN/GLOBULIN RATIO 1.07; BILIRUBIN,INDIRECT 0.2 mg/dl (0-1.1); BILIRUBIN,TOTAL 0.2 mg/dl (0.2-1.3); CALCIUM 9.2 mg/dl (8.4-10.2); CREATININE 0.44 mg/dl (0.44-1.00); POTASSIUM 4.1 mmol/L (3.5-5.1); TOTAL PROTEIN 5.4 g/dl (6.1-8.1)
[2017-01-05 08:15] VITALS: BP 91/58; PULSE 93; RESP 14
[2017-01-05] MEDS: KETOROLAC 30 MG INJ IV PRN (09:08)
--- NOTE | 2017-01-05 11:13 | QN ---
Documentation Comment pt doing well pod1 vss exam wnl CDI a/p pod1 pt doing well continue care KAREN WHIPPLE MD Jan 05, 2017 11:13
[2017-01-05 12:29] VITALS: BP 100/63; PULSE 92; RESP 14
[2017-01-05 16:10] VITALS: BP 130/61; PULSE 85; RESP 18
[2017-01-05] MEDS: IBUPROFEN 600 MG TAB PO PRN (18:42)
[2017-01-05 20:00] VITALS: BP 97/56; PULSE 86; RESP 19
[2017-01-06 04:00] VITALS: BP 92/56; PULSE 93; RESP 20
[2017-01-06 05:38] VITALS: BP 89/63; PULSE 100; RESP 18
[2017-01-06 06:33] VITALS: BP 92/56; PULSE 93; RESP 19
[2017-01-06 08:15] VITALS: BP 100/64; PULSE 93; RESP 16
[2017-01-06] MEDS: IBUPROFEN 600 MG TAB PO PRN ×3 (12:10→23:31)
--- NOTE | 2017-01-06 13:03 | QN ---
Documentation Comment POD #2 s/p repeat c/s for PTL non-responsive to tocolytics. Pt doing well, eating a regular diet, passing gas and stool, with excellent pain control. Baby is in the NICU and improving from tube feeding to bottle feeding. T=99 BP 100/64 Incision clean, dry and intact w/o evidence of infection. Lochis minimal. Ext NT, no edema. WBC 12.3 Hgb 8.9 Plts 181K P: Continue care. Plan d/c tomorrow. OSCAR HORTON MD Jan 06, 2017 13:03
[2017-01-06] MEDS: LACTATED RINGER'S 1,000 ML IV SCH ×4 (19:42→19:43)
[2017-01-06 20:15] VITALS: BP 108/70; PULSE 81; RESP 20
[2017-01-07] VITALS: BP 96/55; PULSE 86; RESP 19
[2017-01-07 04:15] VITALS: BP 91/53; PULSE 82; RESP 19
[2017-01-07] MEDS: IBUPROFEN 600 MG TAB PO PRN ×2 (05:37→12:15)
[2017-01-07] MEDS: LACTATED RINGER'S 1,000 ML IV SCH (06:30)
[2017-01-07 08:38] VITALS: BP 99/50; PULSE 75; RESP 18
--- NOTE | 2017-01-07 09:21 | DS ---
Date/Time of Note Date/Time of Note DATE: 01/07/17 TIME: 09:18 Obstetrical Discharge Record Final Diagnosis Final Diagnosis: delivered Other Final Diagnosis s/p sterilization, BTL Section Section: Repeat Primary Indication Labor, Hx of C/S x3 Complications Labor Augmentation: No Induction: No Tocolytics: Other (Nifedipine) Rupture of Membranes: No Condition on Discharge Physical Assessment Last Vitals: 98.3 99/50 75 18 Voiding: Yes Bowel Movement: Yes Breast: Other Fundus: Firm Abdomen and Incision: c/d/i with dermabond Calf Tenderness: No Patient Condition: Good (pain c/w ibuprofen alone. pt declines Rx for narcotics. has f/up appt 01/12/17 w/OB and pt instructed to keep appointment as scheduled) GUANAKO MATTHEW MD Jan 07, 2017 09:21
--- NOTE | 2017-01-07 09:24 | PD.PPDC ---
SINGER S[employer]WR[employer] Discharge Instruction Diagnosis Final Diagnosis: Delivered by section and tubal ligation Condition Patient Condition: Good Diet Diet: Resume Regular Diet Activity/Restrictions Activity: Normal Activity Restrictions: No Sexual Activity Nothing in the Vagina No [place] No Tampons, douche Wound/Drain Care Instructions Wound/Drain Care Instructions: Wash with soap and water Keep clean and dry Follow-up Follow-up with Physician: 1, Week/Weeks Return to clinic for [employer] Instructions: Fever greater than 101 Chills Worsening abdominal pain Excessive Vaginal Bleeding More than 2 pads per hour Unable to tolerate diet OB Instructions: Breast Tenderness Depression Blurried Vision Headache Surgical Instructions: Incisional Drainage Incisional Redness GUANAKO MATTHEW MD Jan 07, 2017 09:24
[2017-01-07] MEDS ORDERED: IBUP-1542 PO (09:28)
== END 2017-01-07 16:18 | disposition home or self-care (01) | DRG 766 ==
LOC: OBT 16:39 → L-D 16:40 → OBG 23:05 → OBT 23:05 → L-D 01-04 07:47 → PP1 01-04 15:42
PROVIDERS: ADMIT Obstetrics & Gynecology Obstetrics; ATTEND Obstetrics & Gynecology Obstetrics
PROC: 0UB70ZZ Excision of Bilateral Fallopian Tubes, Open Approach (ICD-10-PCS; 2017-01-04)
PROC: 0DNS0ZZ (ICD-10-PCS; 2017-01-04)
PROC: 10D00Z1 Extraction of Products of Conception, Low, Open Approach (ICD-10-PCS; principal; 2017-01-04 11:45)
DX: O60.14X0 Preterm labor third trimester with preterm delivery third trimester, not applicable or unspecified (principal); K66.0 Peritoneal adhesions (postprocedural) (postinfection); O34.211 Maternal care for low transverse scar from previous cesarean delivery; O99.62 Diseases of the digestive system complicating childbirth; Z37.0 Single live birth; Z3A.34 34 weeks gestation of pregnancy; Z30.2 Encounter for sterilization
CPT/HCPCS: 36415; 76815; 76817; 80053; 81001; 81003; 85025; 85610; 85730; 86592; 86850; 86900; 86901; 86920; 87340; 88302; 88307; 96360; 96361; G0463; J0595; J0690; J0702; J1170; J1885; J2210; J2250; J2274; J2405; J2590; J2765; J3105; J7120; J7999